=== PATIENT | female | born 2000 | race Caucasian/White ===

== ENCOUNTER 2020-10-02 19:55 | Emergency (ER) | payer MEDICAID ==
[~2020-10-02] VITALS: Ht 149.9 cm; Wt 47.2 kg
[2020-10-02 20:00] VITALS: BP_SYST 119
--- NOTE | 2020-10-02 20:13 | NUR ---
Patient to ER bed 3 to gown for evaluation. Side rails up. Report given to MARLIN DEL VALLE.
--- NOTE | 2020-10-02 20:14 | NUR ---
DAYTON Acevedo at bedside examining patient.
--- NOTE | 2020-10-02 20:16 | NUR ---
Dorys delvalle in EDM - 10/02/20 at 2023 by CARMENPR Patient to ER bed 3 to [facility] for evaluation. Side rails up. Report given to Jennyfer DEL VALLE.
--- NOTE | 2020-10-02 20:17 | NUR ---
pt a&o x4 from home c/o of upper lip swelling that started 30 mins ago. pt states her boyfriend has a cold sore & put medicine on it and afterwards she was kissing him. pt denies taking any new medications, any trauma, eating any new foods, any lip injections. pt denies pain.
--- NOTE | 2020-10-02 20:17 | NUR ---
pt denies any difficulty breathing, difficulty swallowing, or swelling of tongue.
[2020-10-02] MEDS ORDERED: FAMOTIDINE 20 MG TABLET PO ONE (20:30)
[2020-10-02] MEDS ORDERED: predniSONE 20 MG TABLET PO ONE (20:30)
[2020-10-02] MEDS ORDERED: DIPHENHYDRAMINE HCL 50 MG CAPSULE PO ONE (20:30)
--- NOTE | 2020-10-02 20:41 | NUR ---
patient medicated per MD orders. pt tolerated well. pt states she has a ride home.
--- NOTE | 2020-10-02 20:50 | NUR ---
Urine HCG done, results negative. aware.
[2020-10-02 23:22] VITALS: BP_SYST 97
--- NOTE | 2020-10-02 23:22 | NUR ---
Patient given written and verbal discharge instructions and verbalizes understanding. ER MD discussed with patient the results and treatment provided. Patient in stable condition. ID arm band removed. Rx of BENADRYL, PEPCID, PREDNISONE given. Patient educated on pain management and to follow up with PMD. Pain Scale 0/10. Opportunity for questions provided and answered. Medication side effect fact sheet provided.
== END 2020-10-02 23:22 | disposition home or self-care (01) ==
LOC: SED 19:55
DX: T78.40XA Allergy, unspecified, initial encounter (principal); X58.XXXA Exposure to other specified factors, initial encounter
CPT/HCPCS: 81025; 99284; J7512; Q0163

== ENCOUNTER 2020-11-18 22:20 | Emergency (ER) | payer MEDICAID ==
[~2020-11-18] VITALS: Ht 149.9 cm; Wt 45.4 kg
[2020-11-18 22:25] VITALS: BP_SYST 124
[2020-11-18] MEDS ORDERED: IBUPROFEN 600 MG TABLET PO ONE (22:45)
[2020-11-18 23:20] VITALS: BP_SYST 124
== END 2020-11-18 23:15 | disposition home or self-care (01) ==
LOC: SED 22:20
DX: S52.502A Unspecified fracture of the lower end of left radius, initial encounter for closed fracture (principal); Z88.0 Allergy status to penicillin; V00.311A Fall from snowboard, initial encounter; Y93.23 Activity, snow (alpine) (downhill) skiing, snowboarding, sledding, tobogganing and snow tubing; Y92.89 Other specified places as the place of occurrence of the external cause; Y99.8 Other external cause status
CPT/HCPCS: 99283